=== PATIENT | male | born 1955 | race Caucasian/White ===

== ENCOUNTER 2020-06-30 12:25 | Emergency (ER) | payer MEDICARE ==
[~2020-06-30] VITALS: Ht 172.7 cm; Wt 83.0 kg
--- NOTE | 2020-06-30 12:34 | NUR ---
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 VSS. CHANGED TO HOSP GOWN, WARM BLANKET PROVIDED, PATIENT AAO x 2, DR GUZMAN AT BEDSIDE. NIH SCALE OF 5. NOTED W R SIDED FACIAL DROOP, RUE WEAKNESS, APHASIA AND CONFUSION.
[2020-06-30 12:48] LABS: BASOPHILS # (AUTO) 0.1 /CMM (0.0-0.2); EOSINOPHILS % (AUTO) 1.9 % (0.0-6.0); HEMATOCRIT 42 % (39-51); HEMOGLOBIN 14.2 g/dL (13.5-17.5); LYMPHOCYTES # (AUTO) 1.2 /CMM (0.8-4.8); LYMPHOCYTES % (AUTO) 18.4 % (20.0-44.0); MEAN CORPUSCULAR HGB CONC 34 g/dl (31.0-36.0); MEAN CORPUSCULAR VOLUME 92 fL (80-96); MONOCYTES # (AUTO) 0.4 /CMM (0.1-1.30); MONOCYTES % (AUTO) 7.1 % (2.0-12.0); NEUTROPHILS # (AUTO) 4.5 /CMM (1.8-8.9); NEUTROPHILS % (AUTO) 71.6 % (43.0-81.0); PLATELET COUNT (AUTO) 264 /CMM (150-450); RED BLOOD CELL COUNT(AUTO) 4.59 MIL/uL (4.5-6.0); WHITE BLOOD COUNT (AUTO) 6.3 K/uL (4.3-11.0)
--- NOTE | 2020-06-30 12:54 | NUR ---
GIRLFRIEND: PADMINI [phone]
[2020-06-30 12:56] LABS: CALCIUM, SERUM 9.2 mg/dL (8.5-10.1); CARBON DIOXIDE 26 mmol/L (21-32); CHLORIDE 104 mmol/L (98-107); CREATININE 0.8 mg/dL (0.6-1.3); GLUCOSE 98 mg/dL (74-106); POTASSIUM 4.2 mmol/L (3.5-5.1); SODIUM SERUM 139 mmol/L (136-145); UREA NITROGEN, BLOOD 28 mg/dL (7-18)
[2020-06-30] MEDS ORDERED: IOHEXOL-350 100 ML VIAL IV ONE (13:09)
[2020-06-30] MEDS ORDERED: IV NS 0.9% 250 ML IV ONE (13:09)
[2020-06-30 13:16] LABS: CHOLESTEROL 124 mg/dL (<200); HDL CHOLESTEROL 48 mg/dL (40-60); LDL 68 mg/dL (0-99); TRIGLYCERIDES 59 mg/dL (30-150)
[2020-06-30] MEDS ORDERED: TURM500C9 PO (13:52)
[2020-06-30] MEDS ORDERED: MULT-1168 PO (13:52)
[2020-06-30] MEDS ORDERED: CHOL100040 PO (13:52)
[2020-06-30] MEDS ORDERED: ASCO-495 PO (13:52)
[2020-06-30] MEDS ORDERED: CALC1TAB30 PO (13:52)
[2020-06-30] MEDS ORDERED: CELE200C PO (13:52)
--- NOTE | 2020-06-30 13:58 | NUR ---
RAPID COVID SWAB DONE AND SENT TO LAB.
[2020-06-30 13:59] VITALS: BP 132/79
--- NOTE | 2020-06-30 14:19 | NUR ---
Patient does not wish to proceed with medical care recommended by Dr. Francis. Patient given information related to possible complications, up to and including , which could occur as a result of leaving the hospital at this time. Patient verbalizes understanding of risks involved due to leaving against medical advice. Patient has signed AMA form. patient will be picked up by girlfriend.
--- NOTE | 2020-06-30 14:19 | NUR ---
PATIENT DOES NOT WISH TO STAY IN THE HOSPITAL. MMD AWARE
--- NOTE | 2020-06-30 14:30 | NUR ---
Assisted to waiting room in stable condition.
--- NOTE | 2020-06-30 14:30 | NUR ---
IV removed. Catheter intact and site benign. Pressure and 4x4 applied to site. No bleeding noted.
== END 2020-06-30 14:31 | disposition left against medical advice (07) ==
LOC: EDBD 12:27 → ER 12:27
DX: I63.9 Cerebral infarction, unspecified (principal); R47.01 Aphasia; R29.810 Facial weakness; R40.2242 Coma scale, best verbal response, confused conversation, at arrival to emergency department; R40.2362 Coma scale, best motor response, obeys commands, at arrival to emergency department; R40.2142 Coma scale, eyes open, spontaneous, at arrival to emergency department; G93.6 Cerebral edema; Z85.841 Personal history of malignant neoplasm of brain; R22.1 Localized swelling, mass and lump, neck; Z85.118 Personal history of other malignant neoplasm of bronchus and lung; Z20.828 Contact with and (suspected) exposure to other viral communicable diseases; R29.705 NIHSS score 5
CPT/HCPCS: 36415; 70450; 70496; 70498; 71045; 80048; 80061; 82962; 84484; 85025; 85730; 87081; 87426; 93005; 99291; J7050; Q9967; C9803-CS